=== PATIENT | male | born 1995 | race Caucasian/White ===

== ENCOUNTER 2022-01-10 11:50 | Emergency (ER) | payer OTHER ==
[2022-01-10 12:02] VITALS: BP 129/94
== END 2022-01-10 14:26 | disposition home or self-care (01) ==
LOC: ED 11:50
DX: S61.012A Laceration without foreign body of left thumb without damage to nail, initial encounter (principal); Z28.310 Unvaccinated for COVID-19; W26.8XXA Contact with other sharp object(s), not elsewhere classified, initial encounter; Y92.59 Other trade areas as the place of occurrence of the external cause; Y99.0 Civilian activity done for income or pay